=== PATIENT | male | born 1965 | race American Indian/Alaskan Native ===

== ENCOUNTER 2018-01-08 23:31 | Emergency (ER) | payer SELFPAY ==
[2018-01-08] MEDS ORDERED: KEPPRA 1,000 MG/NS 0.75% 100ML 1,000 MG/100 ML BAG IV ONE (23:49)
--- NOTE | 2018-01-09 00:04 | Emergency Department Report ---
HPI - General Chief Complaint: Seizure Time Seen by Provider: 01/08/18 23:43 - HPI HPI: Room 24 The patient is a 52-year-old male presenting with a chief complaint seizures. 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 Patient reportedly had 2 absence seizures today. one occurring earlier in the day and then one just prior to ems arrival this evening. Patient denies pain or any complaints at this time. Patient confirms this by shaking or nodding his head when questioned Location: [facility] Duration: Unknown Quality: Staring Severity: Moderate Modifying factors: [see above] Context: [see above] Mode of transportation: [not driving] ED Past Medical Hx - Past Medical History Previous Medical History?: Yes Hx CVA: Yes (residual aphasia, right-sided paralysis) Hx Seizures: Yes - Surgical History Past Surgical History?: Yes Additional Surgical History: Feeding Tube - Family History Family history: no significant - Social History Smoking Status: Unknown if ever smoked Substance Use Type: Prescribed ED Review of Systems ROS: Stated complaint: SEIZURE Other details as noted in HPI Constitutional: no symptoms reported Eyes: denies: eye pain ENT: denies: throat pain Cardiovascular: denies: chest pain Gastrointestinal: denies: abdominal pain Genitourinary: denies: dysuria Musculoskeletal: denies: back pain Neurological: other (absence seizure). denies: headache Physical Exam - Physical Exam Vital Signs: Vital Signs 01/08/18 23:36 Pulse Rate 83 Blood Pressure 117/82 O2 Sat by Pulse 98 Oximetry Physical Exam: GENERAL: The patient is well-developed well-nourished male lying on stretcher not appearing to be in acute distress. [] HEENT: Normocephalic. Atraumatic. Extraocular motions are intact. Patient has moist mucous membranes. NECK: Supple. Trachea midline CHEST/LUNGS: Clear to auscultation. There is no respiratory distress noted. HEART/CARDIOVASCULAR: Regular. There is no tachycardia. There is no gallop rub or murmur. ABDOMEN: Abdomen is soft, nontender. Patient has normal bowel sounds. There is no abdominal distention. SKIN: There is no rash. There is no edema. There is no diaphoresis. NEURO: The patient is awake and alert. The patient is cooperative. Patient has residual right-sided paralysis. Patient only able to move left upper extremity (baseline) MUSCULOSKELETAL: There is no evidence of acute injury. ED Course Vital Signs 01/08/18 23:36 Pulse Rate 83 Blood Pressure 117/82 O2 Sat by Pulse 98 Oximetry ED Medical Decision Making - Lab Data Result diagrams: 01/08/18 23:45 01/08/18 23:45 Laboratory Tests 01/08/18 01/08/18 23:45 23:45 WBC 4.2 L RBC 5.07 H Hgb 12.3 Hct 40.2 MCV 79 L MCH 24 L MCHC 31 L RDW 25.0 H Plt Count 258 Sodium 133 L Potassium 4.9 Chloride 98.6 Carbon Dioxide 27 Anion Gap 12 BUN 14 Creatinine 0.5 L Estimated GFR > 60 BUN/Creatinine Ratio 28 Glucose 83 Calcium 9.4 - Differential Diagnosis seizure Critical care attestation.: If time is entered above; I have spent that time in minutes in the direct care of this critically ill patient, excluding procedure time. ED Disposition Clinical Impression: Seizure Disposition: DC-01 TO HOME OR SELFCARE Is pt being admited?: No Does the pt Need Aspirin: No Condition: Stable Instructions: Epilepsy (ED), Recurrent Seizures Adult (ED) Additional Instructions: Return to the emergency department immediately should you develop worsening symptoms, fever, inability to tolerate food or liquid or any other concerns. Referrals: [facility] [Outside] - 3-5 Days VEENA BROWNING MD [Staff Physician] - [facility] (Dr. Browning is a neurologist. Please follow-up with him or your own neurologist for further evaluation) Time of Disposition: 00:33
[2018-01-09 00:06] LABS: Mean Corpuscular HGB Conc 31 % (32-34); Mean Corpuscular Volume 79 fl (84-94); Platelet Count 258 K/mm3 (140-440); Red Blood Count 5.07 M/mm3 (3.65-5.03)
[2018-01-09 00:11] LABS: Hematocrit 40.2 % (35.5-45.6); Hemoglobin 12.3 gm/dl (11.8-15.2); Mean Corpuscular Hemoglobin 24 pg (28-32)
[2018-01-09 00:27] LABS: BUN/Creatinine Ratio 28; Blood Urea Nitrogen 14 mg/dL (9-20); Calcium 9.4 mg/dL (8.4-10.2); Hemolysis Index 17
[2018-01-09 00:51] VITALS: BP 126/81
[2018-01-09] MEDS ORDERED: KEPPRA PO ONE (01:13)
== END 2018-01-09 01:38 | disposition home or self-care (01) ==
LOC: ED 23:31
DX: R56.9 Unspecified convulsions (principal); Z86.73 Personal history of transient ischemic attack (TIA), and cerebral infarction without residual deficits
CPT/HCPCS: 36415; 80048; 85027; J1953